=== PATIENT | female | born 1955 | race Caucasian/White ===

== ENCOUNTER → 2016-07-02 | Outpatient (REF) | LOC: M LAB 14:08 | PROVIDERS: ATTEND Nurse Practitioner Adult Health | DX: Z02.9 Encounter for administrative examinations, unspecified (principal) ==

== ENCOUNTER → 2016-08-25 | Outpatient (CLI) | payer OTHER ==
[2016-08-25 16:11] LABS: ALBUMIN 3.9 GM/DL (3.2-5.2); ALBUMIN/GLOBULIN RATIO 1.26 (1.00-1.93); ALKALINE PHOSPHATASE 79 U/L (45-117); ALT/SGPT 67 U/L (12-78); ANION GAP 9 MEQ/L (8-16); AST/SGOT 26 U/L (15-37); BILIRUBIN,TOTAL 0.5 MG/DL (0.2-1.0); BLOOD UREA NITROGEN 16 MG/DL (7-18); CALCIUM LEVEL 8.9 MG/DL (8.8-10.2); CARBON DIOXIDE LEVEL 30 MEQ/L (21-32); CHLORIDE LEVEL 100 MEQ/L (98-107); CHOLESTEROL LEVEL 188 MG/DL (<200); CREATININE FOR GFR 0.73 MG/DL (0.55-1.02); GLOMERULAR FILTRATION RATE > 60.0 (>45); GLUCOSE, FASTING 98 MG/DL (80-110); POTASSIUM SERUM 4.2 MEQ/L (3.5-5.1); SODIUM LEVEL 139 MEQ/L (136-145); TRIGLYCERIDES LEVEL 219 MG/DL (<150)
== END ==
LOC: M WUC 08:36
PROVIDERS: ATTEND Family Medicine
DX: E78.2 Mixed hyperlipidemia (principal)

== ENCOUNTER → 2017-04-22 | Outpatient (CLI) | payer OTHER | LOC: M WHC 09:02 | DX: Z12.31 Encounter for screening mammogram for malignant neoplasm of breast (principal) | CPT/HCPCS: 77067 ==

== ENCOUNTER → 2017-04-22 | Outpatient (REF) | payer OTHER | LOC: M SFHCWAGY 09:20 | DX: Z12.4 Encounter for screening for malignant neoplasm of cervix (principal) | CPT/HCPCS: 88142 ==

== ENCOUNTER → 2017-10-26 | Outpatient (REF) | payer OTHER ==
[2017-10-26 10:43] LABS: HEMATOCRIT 40.6 % (36.0-47.0); HEMOGLOBIN 13.8 g/dl (12.0-15.5); MEAN CORPUSCULAR HEMOGLOBIN 29.4 pg (27.0-33.0); MEAN CORPUSCULAR VOLUME 86.4 fl (80.0-96.0); PLATELET COUNT, AUTOMATED 265 10^3/uL (150-450); RED CELL DISTRIBUTION WIDTH 12.7 % (11.5-14.5); WHITE BLOOD COUNT 6.7 10^3/uL (4.0-10.0)
[2017-10-26 11:25] LABS: ALBUMIN 3.8 GM/DL (3.2-5.2); ALBUMIN/GLOBULIN RATIO 1.19 (1.00-1.93); ALKALINE PHOSPHATASE 89 U/L (45-117); ALT/SGPT 30 U/L (12-78); ANION GAP 8 MEQ/L (8-16); AST/SGOT 19 U/L (7-37); BILIRUBIN,TOTAL 0.3 MG/DL (0.2-1.0); BLOOD UREA NITROGEN 18 MG/DL (7-18); CALCIUM LEVEL 8.8 MG/DL (8.8-10.2); CARBON DIOXIDE LEVEL 30 MEQ/L (21-32); CHLORIDE LEVEL 105 MEQ/L (98-107); CHOLESTEROL LEVEL 193 MG/DL (<200); CHOLESTEROL RISK RATIO 4.948 (<5); GLOMERULAR FILTRATION RATE > 60.0 (>45); GLUCOSE, FASTING 93 MG/DL (70-100); HDL CHOLESTEROL 39 MG/DL (>40); LDL CHOLESTEROL 110.8 MG/DL (<100); NON-HDL-C 154 MG/DL; POTASSIUM SERUM 3.7 MEQ/L (3.5-5.1); SODIUM LEVEL 143 MEQ/L (136-145); TRIGLYCERIDES LEVEL 216 MG/DL (<150)
[2017-10-26 11:29] LABS: ESTIMATED AVERAGE GLUCOSE 123 MG/DL (60-110); HEMOGLOBIN A1c 5.9 %
== END ==
LOC: M SFHCPLAZ 08:42
DX: F43.23 Adjustment disorder with mixed anxiety and depressed mood (principal); E78.2 Mixed hyperlipidemia; Z86.39 Personal history of other endocrine, nutritional and metabolic disease; E74.9 Disorder of carbohydrate metabolism, unspecified
CPT/HCPCS: 84443

== ENCOUNTER → 2018-04-25 | Outpatient (CLI) | payer OTHER ==
--- NOTE | 2018-04-25 17:05 | REP ---
Digital diagnostic unilateral right breast mammography with CAD and focused right breast sonography: History: Screening mammography from earlier today was BIRADS category zero because of a possible nodular neodensity 8 mm in diameter at approximately 11 o'clock position in the upper outer quadrant of the right breast. Diagnostic imaging was recommended. Comparison is also made with prior mammography from April 22, 2017. Mammographic findings: Magnified focal spot compression CC, MLO, and true MLO views of the right breast confirm the presence of a 7 mm nodular neodensity in the upper outer quadrant right breast with somewhat irregular margins. This is at approximately 11 o'clock position. Sonographic findings: The right breast is scanned from 10 o'clock 12 o'clock. At 11 o'clock and heterogeneous background echotexture, a 6 x 5 x 3 mm hypoechoic nodule is noted approximately 2.4 cm from the nipple. This most likely corresponds to the mammographic opacity. It is not a cyst. Its long axis is oblique to the skin. Impression: BIRADS category four suspicious right breast imaging. Irregular 7 mm nodule seen mammographically. A 6 mm hypoechoic nodule is seen sonographically. Ultrasound-guided needle biopsy of the right breast is recommended with marker clip placement and post biopsy mammography. This mammogram was interpreted with the aid of an FDA-approved computer-aided detection system. The patient states she had a clinical breast exam in April 2018. The patient letter being requested is M4. Electronically Signed by Haroldo Bhardwaj MD 04/25/2018 07:46 P
== END ==
LOC: M RAD 15:09
PROVIDERS: ATTEND Nurse Practitioner Women's Health
DX: N63.10 Unspecified lump in the right breast, unspecified quadrant (principal)

== ENCOUNTER → 2018-04-25 | Outpatient (CLI) | payer OTHER ==
--- NOTE | 2018-04-25 11:44 | REPMRS ---
Patient History The patient states she had a clinical breast exam in 05/07 Family history of prostate cancer at age 60 in father. Took hormonal contraceptives for 10 years. Took estrogen for 1 year. Digital Woman Screen Mammo: April 25, 2018 - Exam #: [id number] Bilateral CC and MLO view(s) were taken. Technologist: Jacquie Hopkins, Technologist Prior study comparison: April 22, 2017, digital woman screen mammo performed at [facility]. January 07, 2016, digital woman screen mammo performed at [facility]. November 30, 2014, digital woman screen mammo performed at [facility]. FINDINGS: There are scattered fibroglandular densities. There is an 8 mm nodular neodensity projecting in the upper outer quadrant of the right breast on today's mammography which merits further evaluation. This has a lobulated contours. There has been no change in the appearance of the mammogram from the prior studies. There is a mild amount of scattered fibroglandular density which is fairly symmetric. There is no interval development of dominant mass, architectural distortion, or clustered microcalcification suggestive of malignancy. 3-D tomosynthesis shows no additional findings. Assessment: BI-RADS/ACR category 0 mammogram, incomplete. BIRADS/ACR category zero mammogram, incomplete. Additional imaging and/or prior images needed. Recommendation Ultrasound and special view mammogram of the right breast. This patient's Lifetime Breast Cancer RIsk is estimated at 10.0 %. This mammogram was interpreted with the aid of an FDA-approved computer-aided dectection system. Electronically Signed By: Dayton Bhardwaj MD 04/25/18 [id number]
== END ==
LOC: M WHC 10:09
PROVIDERS: ATTEND Nurse Practitioner Women's Health
DX: R92.2 Inconclusive mammogram (principal)

== ENCOUNTER → 2018-05-16 | Outpatient (CLI) | payer OTHER ==
[~2018-05-16] MED LIST: LIDOCAINE 1% MDV 20ML VIAL As Ordered ONE
--- NOTE | 2018-05-16 14:29 | REP ---
POSTBIOPSY MAMMOGRAM RIGHT BREAST: ML and CC views of the right breast are performed following ultrasound guided biopsy of a nodule in the upper outer quadrant. A metallic clip is seen within the nodule compatible with a successful ultrasound guided biopsy. Electronically Signed by Kevin Chester MD 05/16/2018 04:47 P
--- NOTE | 2018-05-16 16:43 | REP ---
ULTRASOUND GUIDED RIGHT BREAST BIOPSY The procedure was performed under the direct supervision of Dr. Chester The patient has a history of a 6 x 5 x 3 millimeter nodule in the 11 o'clock position of the right breast seen on a previous ultrasound dated 04/25/2018. The risks and benefits of the procedure were explained to the patient and informed consent was obtained. The right breast nodule was localized using ultrasound guidance. The skin was prepped and draped in a sterile fashion. 1% Xylocaine was used as a local anesthetic. Using ultrasound guidance a 13-gauge suction assisted Mammotome needle was inserted and six core biopsy samples were obtained. A marker clip was placed at the biopsy site. The patient tolerated the procedure well and there were no immediate complications. After the appropriate amount of monitored convalescence the patient was discharged from the department. Reviewed by JESSE Simmons 05/16/2018 04:03 P Electronically Signed by Kevin Chester MD 05/16/2018 04:35 P
== END ==
LOC: M RADPRO 12:17
PROVIDERS: ATTEND Surgery
DX: C50.411 Malignant neoplasm of upper-outer quadrant of right female breast (principal); Z79.899 Other long term (current) drug therapy; Z88.8 Allergy status to other drugs, medicaments and biological substances

== ENCOUNTER 2018-05-27 06:34 | Day surgery (SDC) | payer OTHER ==
[~2018-05-27] VITALS: Ht 157.5 cm; Wt 78.5 kg
[~2018-05-27 06:34] MED LIST changes: +AMLO5TAB6 PO; +ATOR40TA75 PO; +CALC600T60 PO; +ESTR62CR PV; +HYDR25TAB PO; +IBUP-1114 PO; -LIDOCAINE 1% MDV 20ML VIAL As Ordered ONE; +LIDOCAINE 1% MDV 20ML VIAL SQ PRN; +LIDOCAINE 5% (LIDODERM) PATCH TD ONE; +LISI10TA4 PO; +LR 1,000 ML IV ONE; +PANT40TA3 PO; +PARO40TA2 PO; +REST0.05 OU; +ZOLP10TA2 PO; +ceFAZolin SOD 1 GM in D5W MINI-BAG PLUS 50 ML IV ONE
[2018-05-27] MEDS ORDERED: LIDOCAINE 1% MDV 20ML VIAL As Ordered ONE (07:08)
--- NOTE | 2018-05-27 08:45 | ECGEPIP ---
Stationary ECG Study [facility] Test Date: 2018-05-27 Pat Name: EAN JACKMAN Department: Room: - Gender: F Senior Project Engineer: JEREMY : [id number] Requested By: Amadou Garcia Order Number: [id number] Reading MD: Gene Hawk Measurements Intervals [place] Rate: 70 P: 44 [place]: 129 QRS: 16 QRSD: 97 T: 53 QT: 387 QTc: 420 Interpretive Statements SINUS RHYTHM MINIMAL VOLTAGE CRITERIA FOR LVH, CONSIDER NORMAL VARIANT MINIMAL CHANGE SINCE 09/03/11 Electronically Signed On 05-27-2018 8:45:12 EST by Gene Hawk
[2018-05-27] MEDS ORDERED: LIDOCAINE 2% INJ 100 MG/5 ML SDV (FOR ANES.) As Ordered ONE (10:26)
[2018-05-27] MEDS ORDERED: ONDANSETRON 4MG/2ML VIAL (J2405) As Ordered ONE (10:26)
[2018-05-27] MEDS ORDERED: ROCURONIUM BROMIDE 50 MG/5 ML VIAL As Ordered ONE (10:26)
[2018-05-27] MEDS ORDERED: PROPOFOL 200 MG/20 ML VIAL As Ordered ONE (10:26)
[2018-05-27] MEDS ORDERED: MIDAZOLAM INJ 2 MG/2 ML VIAL (J2250) As Ordered ONE (10:27)
[2018-05-27] MEDS ORDERED: fentaNYL 250 MCG/5 ML INJECTION (J3010) As Ordered ONE (10:27)
[2018-05-27] MEDS ORDERED: dexameTHASONE 4 MG/ML 1ML VIAL (J1100) As Ordered ONE (11:22)
[2018-05-27] MEDS ORDERED: METHYLENE BLUE 0.5% (5MG/ML) 10 ML AMP (PROVAYBLUE)(Q9968 PER 1MG) As Ordered ONE (11:32)
[2018-05-27] MEDS ORDERED: LIDOCAINE 1% SDV INJ 30 ML VIAL As Ordered ONE (11:32)
[2018-05-27] MEDS ORDERED: BUPIVACAINE/EPIN 0.25% 30 ML VIAL As Ordered ONE (11:32)
[2018-05-27] MEDS ORDERED: NEOSTIGMINE 10 MG/10 ML VIAL (J2710) As Ordered ONE (12:55)
[2018-05-27] MEDS ORDERED: GLYCOPYRROLATE INJ 0.2 MG/ML 2 ML VIAL As Ordered ONE (12:55)
[2018-05-27] MEDS ORDERED: KETOROLAC 60 MG/2 ML VIAL (J1885) As Ordered ONE (12:55)
[2018-05-27] MEDS ORDERED: HYDROmorphone HCL 2 MG/ML 1ML VIAL (J1170) As Ordered ONE (12:56)
--- NOTE | 2018-05-27 13:15 | REP ---
Specimen radiograph. Right breast. History: Patient status post needle localization directed excisional biopsy for infiltrating ductal carcinoma. Findings: Specimen radiography demonstrates the marker clip placed at the time of the breast biopsy and medially adjacent to the localizer wire in the central portion of the specimen. There are 3 or 4 punctate microcalcifications approximately a centimeter away from the clip as well incidentally noted. Findings were relayed to Dr. Valdivia in the OR at the time of the specimen radiograph. Electronically Signed by Haroldo Bhardwaj MD 05/27/2018 03:36 P
[2018-05-27] MEDS ORDERED: LABETALOL HCL 100 MG/20 ML VIAL As Ordered ONE (13:26)
[2018-05-27] MEDS ORDERED: NORCO, ANEXSIA 5/325MG TABLET (HYDROcodone/ACETAMINOPHEN) PO PRN (13:45)
[2018-05-27] MEDS ORDERED: LR 1,000 ML IV SCH ×2 (13:45)
[2018-05-27] MEDS ORDERED: METOCLOPRAMIDE INJ 10MG/2ML VIAL (J2765) IV PRN (13:45)
[2018-05-27] MEDS ORDERED: ONDANSETRON 4MG/2ML VIAL (J2405) IV PRN ×2 (13:45)
[2018-05-27] MEDS ORDERED: fentaNYL 100 MCG/2 ML INJECTION (J3010) IV PRN (13:45)
[2018-05-27] MEDS: PERCOCET 5MG/325MG TAB PO PRN ×2 (14:03→14:45)
[2018-05-27 16:20] VITALS: BP 124/60
--- NOTE | 2018-05-27 17:58 | REP ---
RIGHT BREAST LYMPHOSCINTIGRAPHY The procedure was performed under the direct supervision of Dr. Bhardwaj. The images were reviewed with Dr. Bhardwaj. Using topical anesthetic and sterile technique 1.004 mCi of technetium 99 filtered sulfur colloid was injected subdermally and eight fractionated periareolar injections. Images obtained 1 hour after injection show sophie uptake superolaterally on the right. Impression: Right breast lymphoscintigraphy. There is sophie uptake superolaterally on the right. Reviewed by JESSE Simmons 05/27/2018 03:50 P Electronically Signed by Haroldo Bhardwaj MD 05/27/2018 05:49 P
--- NOTE | 2018-05-27 18:01 | REP ---
Right breast localization The procedure was performed under the direct supervision of Dr. Bhardwaj. Patient has a history of a 6 x 5 x 3 mm nodule in the 11 o'clock position of the right breast seen on a previous ultrasound dated 04/25/2018. This was biopsied using ultrasound guidance on 05/16/2018 and marker clip was placed at the biopsy site. The risks and benefits of the procedure were explained to the patient and informed consent was obtained. A cranial caudal approach was utilized. The marker clip was localized using mammographic guidance. The skin was prepped and draped in a sterile fashion. 1% lidocaine was used as a local anesthetic. A 7.5 cm [place] needle wire system was inserted. Follow-up images demonstrate good needle placement. The patient tolerated the procedure well and there were no immediate complications. Reviewed by JESSE Simmons 05/27/2018 03:58 P Electronically Signed by Haroldo Bhardwaj MD 05/27/2018 05:52 P
--- NOTE | 2018-06-02 21:15 | RO ---
DATE OF PROCEDURE: 05/27/2018 PREOPERATIVE DIAGNOSIS: Right breast cancer. POSTOPERATIVE DIAGNOSIS: Right breast cancer. PROCEDURES: 1. Right breast lumpectomy (needle localization). 2. [place] node biopsy. SURGEON: Siva Valdivia FINISHED CLOTH EXAMINER: Dr. Arredondo (provided retraction exposure assistance with exposure of axillary lymph node). ANESTHESIA: General endotracheal anesthesia. ESTIMATED BLOOD LOSS: Minimal. FLUIDS: Crystalloid. BRIEF PROCEDURE SUMMARY: The patient was brought to the operating room and was given general anesthesia. After adequate anesthesia and preoperative antibiotics were given the patient was prepped and draped in the usual sterile fashion. Methylene blue was inserted in the periareolar area and approximately 3.5 mL was injected. Once this was performed the needle localization area was quite well established and unfortunately the needle was quite superiorly placed and thus I created T type incision to bring the dissection directly over the needle and lumpectomy site. In any case this was created with a 15 blade and electrocautery was used to create skin flaps both superiorly and inferiorly. Eventually a large core of tissue was taken and removed in its entirety. The wire and the needle were not seen during the dissection and using Allis clamps on both sides as well as by fingers to provide at least a centimeter margin around the tuft of tissue that I was removing. Once this was removed down all the way to the chest wall, this was removed in its entirety. Hemostasis was achieved with electrocautery. This was copiously irrigated until clear. Next, this was sent to mammography and indeed revealed the specimen in the appropriate area of the needle. This area was closed then with a 3-0 Vicryl dermal layer and 4-0 Vicryl subcuticular. Steri-Strips and a dry sterile dressing was applied. Additional incision was made in the axilla after using the NeoProbe first to identified the location of the pot node, a small incision was made in the axilla and electrocautery was used cut through dermis, underlying subcutaneous tissue down to the clavipectoral fascia. This was opened and then the lymph node was identified with a combination of blunt and sharp dissection. There was a small vessel going right across this lymph node and up to it. I clipped this but there was a branch going off the backside a was treated with electrocautery and provided some hemostasis but eventually this lymph node which was a blue lymph node was removed and indeed revealed a count of almost approximately 14,000 background count was less than 200. The axilla was then copiously irrigated until clear. Once this was clear and operative field was dry, the 3-0 Vicryl was used to approximate the dermis, 4-0 Vicryl was used to approximate the skin. Steri-Strips and dry sterile dressing was applied. The patient was awakened from her anesthesia, brought to the recovery room awake, alert, hemodynamically stable. Sponge and needle counts correct times two.
== END 2018-05-27 16:25 | disposition home or self-care (01) ==
LOC: M SDC 06:34
PROVIDERS: ATTEND Surgery
DX: C50.211 Malignant neoplasm of upper-inner quadrant of right female breast (principal); Z17.0 Estrogen receptor positive status [ER+]; I10 Essential (primary) hypertension; E78.5 Hyperlipidemia, unspecified; K21.9 Gastro-esophageal reflux disease without esophagitis; Z79.899 Other long term (current) drug therapy; Z88.8 Allergy status to other drugs, medicaments and biological substances
CPT/HCPCS: 19125; 38525; 72265; 76098; 78195; 88305; 93005; A9541; J0690; J1100; J1170; J1885; J2250; J2405; J2710; J3010; Q9968

== ENCOUNTER → 2018-06-09 | Outpatient (CLI) | payer OTHER ==
[~2018-06-09] MED LIST changes: -LIDOCAINE 1% MDV 20ML VIAL SQ PRN; -LIDOCAINE 5% (LIDODERM) PATCH TD ONE; +LORA10CA PO; -LR 1,000 ML IV ONE; +MULTCAP PO; -ceFAZolin SOD 1 GM in D5W MINI-BAG PLUS 50 ML IV ONE
--- NOTE | 2018-06-10 11:55 | RADONC ---
RADIATION ONCOLOGY CONSULTATION DATE: 06/09/2018 REFERRING PROVIDERS: Dr. Valdivia, Dr. Mariely Bernal DIAGNOSIS: Right breast carcinoma (invasive ductal type), status post core biopsy, status post lumpectomy, status post sentinel lymph node biopsy. STAGE: Stage [id number], Grade 3, Group stage I A. CHART NUMBER:[id number] ICD-10 CODE: 50.4. ECOG PERFORMANCE STATUS: 0 HISTORY OF PRESENT ILLNESS: The patient is a 62-year-old female who underwent a mammogram showing an abnormality involving the right breast. The nodule was located in the upper outer quadrant, approximately at the 11 o'clock position. On 05/16/2018 she underwent a successful breast biopsy. The original breast tumor measured 5 x 6 x 3 mm. She subsequently underwent a lumpectomy on 05/27/2018, which revealed invasive ductal carcinoma with the residual tumor 1-2 mm adjacent to a previous biopsy cavity. The inked margins of resection were negative. There was a focus of ductal carcinoma in situ, nuclear grade 3 extending less than 3 mm of the inked surgical margin. The sentinel lymph node in the right axilla was biopsied, which revealed no evidence of tumor metastasis. In summary, there were two foci 1-2 mm each or approximately 8 mm if combined with the core biopsy specimen. The tumor was grade 2 to 3 and lymphovascular invasion was not identified. An in situ component was seen with two foci, both 3 and 5 mm with the closest margin being 3 mm, but ultimately the margins were negative. As stated, the receptors were noted to be ER positive, WI positive, HER2/scott oncogene negative. She was thusly staged a pathologic stage [id number]. She did well following her surgery and has an appointment to see Dr. Mariely Bernal for potential chemotherapy on June 15. She comes today to discuss the logistics of external beam radiotherapy. PAST MEDICAL HEALTH: Hypertension, hypercholesterolemia PAST SURGICAL HISTORY: Knee surgery on the left in 2010, wrist surgery in 2011. FAMILY HISTORY OF CANCER: Father had prostate cancer. Mother secondary to hypertension and atrial fibrillation. SOCIAL HISTORY: Smoking: Former smoker of two packs per day. She quit in 1999. Alcohol history, social. ALLERGIES: Denies any allergic reaction to contrast. NAPROXEN, ZYRTEC. CURRENT MEDICATIONS: - amlodipine 5 mg - hydrochlorothiazide 25 mg - pantoprazole 40 mg - lisinopril 10 mg - paroxetine 40 mg - atorvastatin 40 mg - ibuprofen 400 mg - calcium 600-1500 mg - Restasis 0.05% REVIEW OF SYSTEMS: HEENT: She denies nausea, vomiting, headaches or focal neurologic deficits. Eyes: Denies blurred vision or double vision. She denies ear symptoms or hoarseness. Cardiovascular: Denies chest pain, palpitations. Respiratory: Denies coughing, hemoptysis or wheezing. Gastrointestinal: Denies rectal bleeding or family history of colon cancer. She also denies heartburn, jaundice, diarrhea or constipation. : Denies dysuria, frequency, hematuria, nocturia. Musculoskeletal: Denies pain. She may have some minor pain in the knees. Skin: Denies rashes or itching. Neurologic: Denies focal motor neurologic deficits, stroke or headaches. Psychiatric: Denies anxiety or depression. EXAMINATION FINDINGS: Vitals: BP 154/85, temperature 98.9, pulse 72, respirations 15, O2 saturation 98%, height 5 feet 1 inch, weight 176.4. HEENT: Normocephalic. EOMs intact. PERRLA. Fundi benign. Lymphatics: No palpable peripheral lymphadenopathy is noted in the cervical, supraclavicular, axillary or inguinal lymph node chains. Lungs: Clear to auscultation and percussion. Heart: Regular without murmurs. Breasts: Bilaterally symmetric with no palpable masses in either breast. The 11 o'clock position scar is noted involving the right breast with some minimal post cutaneous induration. It is healing very nicely. Abdomen: Without evidence of hepatomegaly, masses, deep abdominal tenderness. Extremities: Without cyanosis, clubbing or edema. Neurologic: Examination physiologic and nonfocal. IMPRESSION Infiltrating ductal carcinoma, right breast staged [id number] (Group I A). The tumor was noted to be ER and WI positive, HER2/scott oncogene not overly express, Grade II. PLAN OF RADIOTHERAPY: The patient will eventually require radiation therapy and we would recommend a dose of external beam breast conservation radiotherapy as per our protocol. We will be treating the breast with three-dimensional conformal radiotherapy. Prior to treatment delivery, localization will be accomplished upon our CT simulator and treatment portals defined by the use of multiple leaf collimators. The indications, possible side effects, as well as possible alternatives have been explained to the patient in detail. She understands and is willing to proceed as outlined. She realizes that she is seeing Dr. Bernal on June 15 for evaluation of chemotherapy. Should she require chemotherapy, I explained to the patient that this will precede treatment with radiotherapy. Thank you for referring this very rose lady to us and allowing us the opportunity of participation in her overall management. CC: Dr. Valdivia, Dr. Mariely Bernal [facility] SYSTEM[facility]
== END ==
LOC: M ONCR 12:47
PROVIDERS: ATTEND Radiology Radiation Oncology
DX: C50.411 Malignant neoplasm of upper-outer quadrant of right female breast (principal)

== ENCOUNTER → 2018-08-09 | Outpatient (CLI) | payer OTHER ==
[~2018-08-09] MED LIST changes: +ANAS1TAB2 PO; +LORA-674 PO
--- NOTE | 2018-08-11 09:47 | DEXA ---
AP SPINE L1 - L4 1.226 0.3 1.7 LT FEMUR TOTAL 0.848 -1.3 -0.2 LT NECK 0.752 -2.1 -0.7 RT FEMUR TOTAL 0.879 -1.0 0.0 RT NECK 0.798 -1.7 -0.4 TOTAL BODY TOTAL OTHER COMMENTS: Normal bone densitometry of the spine. There is low bone density of the hips. The density of the spine has increased 3.3% since the initial exam on 08/04/2004. The spine density has increased 1.1% since the most recent exam on 11/29/2013. The density of the left hip has decreased 4.2% since the initial exam on 08/04/2004. The density of the left hip has decreased 3.6% since the most recent exam on 11/29/2013. The density of the right hip has decreased 1.7% since the initial exam on 08/04/2004. The density of the right hip has decreased 2.3% since the most recent exam on 11/29/2013. FOLLOW-UP: Recommendation for the next bone density exam: 2 years. LAURENT
== END ==
LOC: M WHC 11:26
PROVIDERS: ATTEND Internal Medicine Hematology & Oncology
DX: C50.911 Malignant neoplasm of unspecified site of right female breast (principal)

== ENCOUNTER → 2018-08-16 | Outpatient (RCR) | payer OTHER ==
[2018-07-26 15:25] LABS: HEMOGLOBIN 13.7 g/dl (12.0-15.5); LYMPH % 36.8 % (24.0-44.0); MEAN CORPUSCULAR HEMOGLOBIN 29.4 pg (27.0-33.0); MEAN CORPUSCULAR HGB CONC 32.6 g/dl (32.0-36.5); MEAN CORPUSCULAR VOLUME 90.2 fl (80.0-96.0); NEUTROPHILS # 4.6 10^3/uL (1.8-7.7); NEUTROPHILS % 53.3 % (36.0-66.0); RED BLOOD COUNT 4.66 10^6/uL (4.00-5.40); WHITE BLOOD COUNT 8.7 10^3/uL (4.0-10.0)
--- NOTE | 2018-07-26 16:26 | RADONC ---
RADIATION ONCOLOGY SIMULATION NOTE DATE: 07/26/2018 CHART NUMBER: [id number] SIMULATION NOTE: Ms. Whitman was taken to the CT simulator for simulation of her right breast field. Simulation was accomplished without difficulty or discomfort. Radiation treatment planning is underway and radiation treatments will begin subsequently. I was physically present throughout the course of CT simulation. An immobilization device was created and will be used throughout the course of treatment.
--- NOTE | 2018-08-11 07:39 | RADONC ---
RADIATION ONCOLOGY PROGRESS NOTE DATE: 08/09/2018 CHART NUMBER: [id number] Ms. Whitman is presently at a dose of 1067 cGy to her right breast and is tolerating treatments quite well at this point with no complaints related to her radiation therapy. She is having no breast or bone pain. REVIEW OF SYSTEMS : The patient's review of systems is noncontributory. She denies nausea, vomiting, fevers, chills, night sweats, diplopia, headaches, anxiety or depression, anorexia, weight loss, visual disturbances, chest pain, urinary or bowel difficulties, bone pain, or neurological problems. PHYSICAL EXAMINATION: The patient's skin is in good condition with no evidence of radiation change present. There is no moist or dry desquamation. The remainder of her physical exam remains unchanged. Ms. Whitman is tolerating treatments quite well and radiation will continue as scheduled.
--- NOTE | 2018-08-17 08:33 | RADONC ---
RADIATION ONCOLOGY PROGRESS NOTE DATE: 08/15/2018 CHART NUMBER: [id number] PROGRESS NOTE: Ms. Whitman is presently at a dose of 2134 cGy to her right breast and is tolerating treatments quite well at this point with no complaints related to her radiation therapy. She is having no breast or bone pain. REVIEW OF SYSTEMS: The patient's review of systems is noncontributory. Denies nausea, vomiting, fevers, chills, night sweats, diplopia, headaches, anxiety or depression, anorexia, weight loss, visual disturbances, chest pain, urinary or bowel difficulties, bone pain, or neurological problems. PHYSICAL EXAMINATION: The patient's skin is in good condition with no evidence of moist or dry desquamation. The remainder of physical exam remains unchanged. Ms. Whitman is tolerating treatments quite well and radiation will continue as scheduled.
== END ==
LOC: M ONCR 07-26 14:36
PROVIDERS: ATTEND Radiology Radiation Oncology
DX: C50.411 Malignant neoplasm of upper-outer quadrant of right female breast (principal)

== ENCOUNTER 2018-09-01 11:58 | Outpatient (RCR) | payer OTHER ==
--- NOTE | 2018-08-22 14:50 | RADONC ---
RADIATION ONCOLOGY PROGRESS NOTE DATE: 08/22/2018 CHART NUMBER: [id number] PROGRESS NOTE: Ms. Whitman is thus far at a dose of 3200 cGy to her right breast and was last treated on 08/19/2018. REVIEW OF SYSTEMS: As of Wednesday the patient's review of systems was noncontributory. Denies nausea, vomiting, fevers, chills, night sweats, diplopia, headaches, anxiety or depression, anorexia, weight loss, visual disturbances, chest pain, urinary or bowel difficulties, bone pain, or neurological problems. PHYSICAL EXAMINATION: The patient's skin overall was in generally good condition with no evidence of moist or dry desquamation. The remainder of her physical exam remained unchanged. The patient was not treated today as noted above because of machine breakdown. The patient is scheduled to resume radiation tomorrow if the machine is repaired.
--- NOTE | 2018-08-26 09:30 | RADONC ---
RADIATION ONCOLOGY SIMULATION NOTE DATE: 08/25/2018 CHART NUMBER: [id number] Ms. Whitman was taken to the linear accelerator today for clinical setup of her right breast electron boost field. Setup was accomplished without difficulty or discomfort. Radiation treatment planning is underway and radiation treatments will begin subsequently. An immobilization device was created and will be used throughout the course of treatment. It was created without difficulty or discomfort. I was physically present throughout the course of clinical setup simulation.
--- NOTE | 2018-08-30 07:01 | RADONC ---
RADIATION ONCOLOGY PROGRESS NOTE DATE: 08/29/2018 CHART #: [id number] PROGRESS NOTE Mrs. Whitman with a diagnosis of right breast carcinoma is currently receiving local regional radiotherapy and she has achieved a dose thus far of 4300 cGy of an anticipated 4900 cGy to the lumpectomy site. She will receive a total of 4000 cGy to the entire breast and this has actually been completed 2 days ago. We are now treating the lumpectomy scar site with an energetic electron beam. REVIEW OF SYSTEMS: She denies any nausea, vomiting, coughing, sputum production, hemoptysis or significant skin irritation. The remainder of the review of systems is noncontributory. EXAMINATION FINDINGS: The skin within the irradiated volume shows only minimal changes without moist desquamation and without significant erythema. There is no palpable peripheral lymphadenopathy. The remainder of the physical examination is unchanged. IMPRESSION: Tolerating therapy well. PLAN: Treatments to continue.
--- NOTE | 2018-09-01 21:02 | RADONC ---
RADIATION THERAPY TREATMENT SUMMARY DATE: 09/01/2018 REFERRING PHYSICIANS: Dr. Valdivia and Dr. Mariely Bernal DIAGNOSIS: Right breast carcinoma (invasive ductal type), status post core biopsy, status post lumpectomy, status post sentinel lymph node biopsy. STAGE: Stage [id number], grade 3, group stage IA. CHART NUMBER: [id number]. ECOG PERFORMANCE STATUS: 0. PLAN OF RADIOTHERAPY: Adjuvant. DATES: Date radiotherapy started 08/04/2018. The radiotherapy concluded 09/01/2018. DOSE: The patient received a total of whole breast radiotherapy of 4000 cGy administered in 15 fractions over 21 elapsed days. Prior to treatment delivery, localization was accomplished on our CT simulator and treatment portals defined by the use of multileaf collimators. 3D conformal radiotherapy tangents were utilized to treat to the initial 4000 cGy. Thereafter, after the completion of 4000 cGy, an additional 900 cGy boost was added via an energetic electron beam (16 MeV) to the lumpectomy scar site. These last treatments which totaled an additional 900 cGy were delivered in 5 fractions over 7 elapsed days. The treatments were delivered via a direct en face field configuration. STATUS OF TUMOR: There was no evidence of local regional recurrence nor was there clinical evidence of distant metastatic spread during the course of radiotherapy. TOLERANCE: In general, the treatments were quite well tolerated as she denied any significant nausea, vomiting, coughing, sputum production, hemoptysis, skin irritation, moist desquamation or dry desquamation. Her energy remained relatively constant during her radiotherapy. DISPOSITION: Return to clinic in approximately 1 month, and she was advised to return to her referring physicians as per their directions and instructions.
== END 2018-09-16 ==
LOC: M ONCR 11:58
PROVIDERS: ATTEND Radiology Radiation Oncology
DX: C50.411 Malignant neoplasm of upper-outer quadrant of right female breast (principal)

== ENCOUNTER → 2018-09-26 | Outpatient (CLI) | payer OTHER ==
--- NOTE | 2018-09-26 16:08 | REP ---
Right knee series: Five views. History: Pain in the right knee. Findings: There is mild diffuse osteopenia. Mild proximal tibial spurring is seen consistent with early osteoarthritis. There is nonarticular spurring on the superior pole the patella at the quadriceps tendon insertion site. There is no evidence of joint effusion. No erosive changes seen. Some clothing artifact is visible. Impression: Mild osteoarthritis. Nonarticular patellar spurring at the quadriceps tendon insertion. Electronically Signed by Haroldo Bhardwaj MD 09/26/2018 04:00 P
== END ==
LOC: M ADAMS 15:07 → M WHC 15:07
PROVIDERS: ATTEND Physician Assistant
DX: M25.561 Pain in right knee (principal); M85.861 Other specified disorders of bone density and structure, right lower leg; M17.11 Unilateral primary osteoarthritis, right knee

== ENCOUNTER 2018-10-11 14:20 | Outpatient (RCR) | payer OTHER | END 2018-10-16 | LOC: M PT 14:20 | PROVIDERS: ATTEND Orthopaedic Surgery | DX: M25.561 Pain in right knee (principal) ==

== ENCOUNTER → 2018-10-12 | Outpatient (CLI) | payer OTHER ==
--- NOTE | 2018-10-13 08:22 | RADONC ---
RADIATION ONCOLOGY FOLLOWUP NOTE DATE OF SERVICE: 10/12/2018 REFERRING PHYSICIANS: Dr. Valdivia and Dr. Mariely Bernal. DIAGNOSIS: Right breast carcinoma (invasive ductal type), status post core biopsy, status post lumpectomy, status post sentinel lymph node biopsy. STAGE: [id number], grade 3, group stage I A. CHART NUMBER: [id number] ICD-10 CODE: 50.4. ECOG PERFORMANCE STATUS: 0 FOLLOWUP NOTE: The patient has completed radiotherapy and returns 1 month status post completion of her treatments. She has no complaints referable to her disease or to her treatments. REVIEW OF SYSTEMS: She specifically denies any nausea, vomiting, coughing, sputum production, or hemoptysis. Her energy level is such that she is able to maintain most day-to-day activities without any alteration of her lifestyle. Skin irritation is not an issue for her. EXAMINATION FINDINGS: She is a well-developed, well-nourished female, in no acute distress. HEENT: Normocephalic. EOMs intact. PERRLA. Fundi benign. Lymphatics: No palpable peripheral lymphadenopathy is appreciated in the cervical, supraclavicular, axillary, or inguinal lymph node chains. Lungs are clear to auscultation and percussion. Heart: Regular without murmurs. Abdomen: Without evidence of hepatomegaly, masses, deep abdominal tenderness. Extremities: Without cyanosis, clubbing, or edema. Breasts: Bilaterally symmetric with no dominant masses. IMPRESSION: The patient is clinically CARLEE at this time. We would like to see her back in approximately 6 months with a repeat mammogram. She was encouraged to return to her referring physicians as per their instructions and directions. We would like to see her back at this clinic in 6 months. [facility]
== END ==
LOC: M ONCR 11:28
PROVIDERS: ATTEND Radiology Radiation Oncology
DX: Z08 Encounter for follow-up examination after completed treatment for malignant neoplasm (principal); Z85.3 Personal history of malignant neoplasm of breast; Z92.3 Personal history of irradiation

== ENCOUNTER → 2018-10-24 | Outpatient (REF) | payer OTHER ==
[2018-10-24 19:34] LABS: ALT/SGPT 28 U/L (12-78); BILIRUBIN,TOTAL 0.7 MG/DL (0.2-1.0); BLOOD UREA NITROGEN 10 MG/DL (7-18); CALCIUM LEVEL 9.8 MG/DL (8.8-10.2); CARBON DIOXIDE LEVEL 30 MEQ/L (21-32); CHLORIDE LEVEL 105 MEQ/L (98-107); CHOLESTEROL LEVEL 169 MG/DL (<200); CHOLESTEROL RISK RATIO 3.755 (<5); CREATININE FOR GFR 0.77 MG/DL (0.55-1.30); FREE T4 1.21 NG/DL (0.76-1.46); GLOMERULAR FILTRATION RATE > 60.0 (>45); GLUCOSE, FASTING 91 MG/DL (70-100); HDL CHOLESTEROL 45 MG/DL (>40); LDL CHOLESTEROL 93 MG/DL (<100); NON-HDL-C 124 MG/DL; POTASSIUM SERUM 3.7 MEQ/L (3.5-5.1); SODIUM LEVEL 142 MEQ/L (136-145); THYROID STIMULATING HORMONE 0.409 uIU/ML (0.358-3.740); TOTAL PROTEIN 7.3 GM/DL (6.4-8.2); TRIGLYCERIDES LEVEL 157 MG/DL (<150)
[2018-10-24 19:43] LABS: HEMATOCRIT 41.5 % (36.0-47.0); HEMOGLOBIN 13.8 g/dl (12.0-15.5); MEAN CORPUSCULAR HEMOGLOBIN 28.4 pg (27.0-33.0); MEAN CORPUSCULAR HGB CONC 33.3 g/dl (32.0-36.5); MEAN CORPUSCULAR VOLUME 85.4 fl (80.0-96.0); PLATELET COUNT, AUTOMATED 265 10^3/uL (150-450); RED BLOOD COUNT 4.86 10^6/uL (4.00-5.40); WHITE BLOOD COUNT 6.3 10^3/uL (4.0-10.0)
[2018-10-24 20:03] LABS: MAU/CREAT RATIO 119.2 MCG/MG (0.0-30.0)
== END ==
LOC: M SFHCADAM 12:48
PROVIDERS: ATTEND Physician Assistant
DX: E78.2 Mixed hyperlipidemia (principal); K21.9 Gastro-esophageal reflux disease without esophagitis; I10 Essential (primary) hypertension; Z86.39 Personal history of other endocrine, nutritional and metabolic disease; F43.23 Adjustment disorder with mixed anxiety and depressed mood

== ENCOUNTER → 2018-10-26 | Outpatient (REF) | payer OTHER | LOC: M LAB REF 15:43 | PROVIDERS: ATTEND Physician Assistant | DX: N39.0 Urinary tract infection, site not specified (principal) ==

== ENCOUNTER → 2018-11-16 | Outpatient (RCR) | payer OTHER | LOC: M PT 10-17 13:55 | PROVIDERS: ATTEND Orthopaedic Surgery | DX: Z47.89 Encounter for other orthopedic aftercare (principal); M25.561 Pain in right knee ==

== ENCOUNTER 2018-12-12 13:17 | Outpatient (RCR) | payer OTHER | END 2018-12-17 | LOC: M PT 13:17 | PROVIDERS: ATTEND Orthopaedic Surgery | DX: Z47.89 Encounter for other orthopedic aftercare (principal); M25.561 Pain in right knee ==

== ENCOUNTER → 2019-03-22 | Outpatient (CLI) | payer OTHER ==
[~2019-03-22] MED LIST changes: +CBD OIL PO
--- NOTE | 2019-03-22 12:47 | RADONC ---
RADIATION ONCOLOGY FOLLOWUP NOTE: DATE: 03/22/2019 CHART NUMBER: [id number], Date of : 1955 Ms Whitman is a 63-year-old woman who had the diagnosis of invasive ductal carcinoma of the right breast, T1b N0 M0. She is status post radiation therapy completed 10/12/2018. INTERVAL HISTORY: She is doing very well. She is on anastrazole. She is experiencing aches all over the body. Bone density test was done. She is taking calcium 1200 mg daily with vitamin D. SYSTEMIC REVIEW: Denies fever chill but experiencing general ache all over the body with hormone. She has no respiratory cardiovascular symptoms no GI complaints. ECOG Perfomance score :0 PHYSICAL EXAMINATION, There are no palpable lymhnodes in the neck and axilla bialterally, There is no rash or skin changes on the right breast. Right breast is slightly smaller than the left breast. There is no lump or tenderness in the right breast. There is no swelling of the arms. Lungs are clear. There is no bony tenderness over the spine or rib cages. ASSESSMENT/RECOMMENDATIONS: This is a 63-year-old woman who carries the diagnosis of right breast CA stage I A status post radiation therapy which was completed on 10/12/2018, doing very well. She is on anastrazole with generalized ache. She is scheduled a followup mammography in April of 2019. She was advised continuous followup care with the physicians involved and she was also asked to return here in 3 months. LAURENT
== END ==
LOC: M ONCR 11:24
PROVIDERS: ATTEND Radiology Radiation Oncology
DX: C50.411 Malignant neoplasm of upper-outer quadrant of right female breast (principal); Z92.3 Personal history of irradiation

== ENCOUNTER → 2019-04-26 | Outpatient (CLI) | payer OTHER ==
--- NOTE | 2019-04-26 12:38 | REPMRS ---
Patient History The patient states she had a clinical breast exam in 2018. Patient is postmenopausal, has history of cancer in the right breast at age 62, and is nulliparous. Family history of prostate cancer at age 60 in father. Radio exam Breast Specimen of the right breast, May 27, 2018. Malignant localization of breast nodule of the right breast, May 27, 2018. Malignant US guided breast biopsy of the right breast, May 16, 2018. Took hormonal contraceptives for 10 years. Took estrogen for 1 year. Taking tamoxifen for 3 months. Digital Woman Screen Mammo: April 26, 2019 - Exam #: [id number] Bilateral CC and MLO view(s) were taken. Technologist: Ann Tolbert, Technologist Prior study comparison: May 16, 2018, right breast digital mammo diagnostic unilateral, performed at [facility]. April 25, 2018, bilateral digital woman screen mammo performed at [facility]. April 22, 2017, digital woman screen mammo performed at [facility]. January 07, 2016, digital woman screen mammo performed at [facility]. FINDINGS: There are scattered fibroglandular densities. There is diffuse dermal and stromal thickening post a radiation therapy in the right breast. Mild postoperative scarring is seen at 12 o'clock in the right breast. Expected postop treatment changes. There has been no other change in the appearance of the mammogram from the prior studies. There is a mild amount of scattered fibroglandular density which is fairly symmetric. There is no other interval development of dominant mass, architectural distortion, or grouped microcalcification suggestive of malignancy. 3-D tomosynthesis shows no additional findings. Assessment: BI-RADS/ACR category 2 mammogram. Benign Findings. Recommendation Routine screening mammogram of both breasts in 1 year (for women over age 40). This mammogram was interpreted with the aid of an FDA-approved computer-aided dectection system. Electronically Signed By: Dayton Bhardwaj MD 04/26/19 [id number]
== END ==
LOC: M WHC 10:20
PROVIDERS: ATTEND Nurse Practitioner Women's Health
DX: Z12.31 Encounter for screening mammogram for malignant neoplasm of breast (principal); Z80.42 Family history of malignant neoplasm of prostate; Z85.3 Personal history of malignant neoplasm of breast

== ENCOUNTER → 2019-06-14 | Outpatient (CLI) | payer OTHER ==
--- NOTE | 2019-06-15 11:00 | RADONC ---
RADIATION ONCOLOGY FOLLOWUP NOTE DATE OF SERVICE: 06/14/2019 CHART NUMBER: [id number]. DIAGNOSIS: Right breast cancer. STAGE: IA, [id number], grade 3. ECOG PERFORMANCE STATUS : 0. FOLLOWUP NOTE: Ms. Whitman is a very pleasant 63-year-old white female who is presenting to us today for routine followup visit 10 months postcompletion of external beam radiation therapy. The patient presents today reporting that she is doing quite well with no complaints at this time related to her radiation therapy or disease. She has no breast or bone pain. REVIEW OF SYSTEMS: The patient's review of systems is noncontributory. She denies nausea, vomiting, fevers, chills, night sweats, diplopia, headaches, anxiety or depression, anorexia, weight loss, visual disturbances, chest pain, urinary or bowel difficulties, bone pain, or neurological problems. PHYSICAL EXAMINATION: The patient is a well-developed, well-nourished female in no acute distress. HEENT examination is normocephalic, atraumatic. Extraocular movements are intact. There is no palpable cervical, supraclavicular, infraclavicular, axillary, or inguinal lymphadenopathy present. Lungs are clear to auscultation and percussion. Heart has a regular rate and rhythm. Abdomen is benign with no hepatosplenomegaly, masses, or tenderness. Breast examination reveals no masses or discharge bilaterally. Skeletal examination reveals no tenderness to pressure or percussion of the bony skeleton. Extremities reveal no clubbing, cyanosis, or edema. Neurologic examination is grossly intact, as is the remainder of the physical examination. ASSESSMENT: The patient is doing quite well at this time. She is undergoing close followup and management by her other physicians. In light of my impending prison, I am discharging her from my followup at this point except on a p.r.n. basis. cc: Josefina Lockwood MD
== END ==
LOC: M ONCR 12:35
PROVIDERS: ATTEND Radiology Radiation Oncology
DX: C50.411 Malignant neoplasm of upper-outer quadrant of right female breast (principal)

== ENCOUNTER → 2019-09-08 | Outpatient (REF) | payer OTHER ==
[2019-09-08 17:47] LABS: HEMATOCRIT 43.2 % (36.0-47.0); HEMOGLOBIN 14.5 g/dl (12.0-15.5); MEAN CORPUSCULAR HEMOGLOBIN 29.7 pg (27.0-33.0); MEAN CORPUSCULAR HGB CONC 33.6 g/dl (32.0-36.5); MEAN CORPUSCULAR VOLUME 88.5 fl (80.0-96.0); PLATELET COUNT, AUTOMATED 286 10^3/uL (150-450); RED BLOOD COUNT 4.88 10^6/uL (4.00-5.40); WHITE BLOOD COUNT 5.4 10^3/uL (4.0-10.0)
[2019-09-08 18:15] LABS: ALT/SGPT 44 U/L (12-78); BILIRUBIN,TOTAL 0.5 MG/DL (0.2-1.0); BLOOD UREA NITROGEN 12 MG/DL (7-18); CALCIUM LEVEL 8.8 MG/DL (8.8-10.2); CARBON DIOXIDE LEVEL 29 MEQ/L (21-32); CHLORIDE LEVEL 105 MEQ/L (98-107); CHOLESTEROL LEVEL 200 MG/DL (<200); CHOLESTEROL RISK RATIO 4.878 (<5); CREATININE FOR GFR 0.64 MG/DL (0.55-1.30); FREE T4 1.13 NG/DL (0.76-1.46); GLOMERULAR FILTRATION RATE > 60.0 (>45); GLUCOSE, FASTING 88 MG/DL (70-100); HDL CHOLESTEROL 41 MG/DL (>40); LDL CHOLESTEROL 122 MG/DL (<100); NON-HDL-C 159 MG/DL; POTASSIUM SERUM 4.1 MEQ/L (3.5-5.1); SODIUM LEVEL 141 MEQ/L (136-145); TOTAL PROTEIN 7.4 GM/DL (6.4-8.2); TRIGLYCERIDES LEVEL 183 MG/DL (<150)
== END ==
LOC: M SFHCADAM 11:23
PROVIDERS: ATTEND Physician Assistant
DX: J45.998 Other asthma (principal); F43.23 Adjustment disorder with mixed anxiety and depressed mood; I10 Essential (primary) hypertension; Z86.39 Personal history of other endocrine, nutritional and metabolic disease; E74.9 Disorder of carbohydrate metabolism, unspecified; E78.2 Mixed hyperlipidemia

== ENCOUNTER → 2020-04-10 | Outpatient (REF) | payer OTHER ==
[~2020-04-10] MED LIST changes: +AMLO1TAB24 PO; -AMLO5TAB6 PO; +PANT40TA29 PO; -PANT40TA3 PO
== END ==
LOC: M SFHCPLAZ 16:49
PROVIDERS: ATTEND Physician Assistant
DX: R30.0 Dysuria (principal)

== ENCOUNTER → 2020-05-30 | Outpatient (CLI) | payer OTHER ==
[~2020-05-30] MED LIST changes: +HYDR-3490 PO; -HYDR25TAB PO; +LISI10TA22 PO; -LISI10TA4 PO
== END ==
LOC: M LABSMTC 12:22
PROVIDERS: ATTEND Family Medicine
DX: Z20.822 Contact with and (suspected) exposure to COVID-19 (principal)
CPT/HCPCS: C9803; U0003

== ENCOUNTER → 2020-06-06 | Outpatient (CLI) | payer OTHER ==
--- NOTE | 2020-06-06 12:58 | REPMRS ---
Patient History The patient states she has not had a clinical breast exam in over a year. Family history of prostate cancer at age 60 in father. Radio exam Breast Specimen of the right breast, May 27, 2018. Malignant localization of breast nodule of the right breast, May 27, 2018. Malignant US guided breast biopsy of the right breast, May 16, 2018. Took hormonal contraceptives for 10 years. Took estrogen for 1 year. Taking tamoxifen for 3 months. Digital Woman Screen Mammo: June 06, 2020 - Exam #: [id number] Bilateral CC and MLO view(s) were taken. Technologist: Ann Tolbert, Technologist Prior study comparison: April 26, 2019, bilateral digital woman screen mammo performed at [facility]. May 16, 2018, right breast digital mammo diagnostic unilateral, performed at [facility]. April 22, 2017, digital woman screen mammo performed at [facility]. FINDINGS: There are scattered fibroglandular densities. The Volpara volumetric breast density category is:B. There are stable post treatment changes in the right breast. There has been no change in the appearance of the mammogram from the prior studies. There is a mild amount of scattered fibroglandular density which is fairly symmetric. There is no interval development of dominant mass, architectural distortion, or grouped microcalcification suggestive of malignancy. 3-D tomosynthesis shows no additional findings. Assessment: BI-RADS/ACR category 2 mammogram. Benign Findings. Recommendation Routine screening mammogram of both breasts in 1 year (for women over age 40). This mammogram was interpreted with the aid of an FDA-approved computer-aided dectection system. Electronically Signed By: Dayton Bhardwaj MD 06/06/20 [id number]
== END ==
LOC: M WHC 12:11
PROVIDERS: ATTEND Nurse Practitioner Women's Health
DX: Z12.31 Encounter for screening mammogram for malignant neoplasm of breast (principal); Z85.3 Personal history of malignant neoplasm of breast; Z92.0 Personal history of contraception

== ENCOUNTER → 2020-06-27 | Outpatient (REF) | payer OTHER | LOC: M SFHCWAGY 16:59 | PROVIDERS: ATTEND Nurse Practitioner Women's Health | DX: R39.9 Unspecified symptoms and signs involving the genitourinary system (principal) ==

== ENCOUNTER → 2020-11-05 | Outpatient (CLI) | payer MEDICARE, OTHER ==
[2020-11-05 17:47] LABS: HEMATOCRIT 43.9 % (36.0-47.0); HEMOGLOBIN 14.6 g/dl (12.0-15.5); MEAN CORPUSCULAR HEMOGLOBIN 30.2 pg (27.0-33.0); MEAN CORPUSCULAR HGB CONC 33.3 g/dl (32.0-36.5); MEAN CORPUSCULAR VOLUME 90.9 fl (80.0-96.0); PLATELET COUNT, AUTOMATED 280 10^3/uL (150-450); RED BLOOD COUNT 4.83 10^6/uL (4.00-5.40); WHITE BLOOD COUNT 6.5 10^3/uL (4.0-10.0)
[2020-11-05 18:03] LABS: HEMOGLOBIN A1c 5.6 %
[2020-11-05 18:29] LABS: ALBUMIN 4.1 GM/DL (3.2-5.2); ALT/SGPT 36 U/L (12-78); BILIRUBIN,TOTAL 0.5 MG/DL (0.2-1.0); BLOOD UREA NITROGEN 13 MG/DL (7-18); CALCIUM LEVEL 8.9 MG/DL (8.8-10.2); CARBON DIOXIDE LEVEL 27 MEQ/L (21-32); CHLORIDE LEVEL 106 MEQ/L (98-107); CHOLESTEROL LEVEL 183 MG/DL (<200); CHOLESTEROL RISK RATIO 4.815 (<5); CREATININE FOR GFR 0.61 MG/DL (0.55-1.30); FREE T4 1.11 NG/DL (0.76-1.46); GLOMERULAR FILTRATION RATE > 60.0 (>45); GLUCOSE, FASTING 88 MG/DL (70-100); HDL CHOLESTEROL 38 MG/DL (>40); LDL CHOLESTEROL 116 MG/DL (<100); NON-HDL-C 145 MG/DL; SODIUM LEVEL 141 MEQ/L (136-145); THYROID STIMULATING HORMONE 0.792 uIU/ML (0.358-3.740); TOTAL PROTEIN 7.4 GM/DL (6.4-8.2); TRIGLYCERIDES LEVEL 147 MG/DL (<150)
== END ==
LOC: M WUC 12:48
PROVIDERS: ATTEND Physician Assistant
DX: E78.2 Mixed hyperlipidemia (principal); I10 Essential (primary) hypertension; E74.9 Disorder of carbohydrate metabolism, unspecified

== ENCOUNTER → 2020-11-26 | Outpatient (CLI) | payer MEDICARE ==
--- NOTE | 2020-11-26 14:59 | DEXAMM ---
INDICATION: A13.820/SCR FOR OSTEOPOROSIS/POSTMENOPAUSAL/Z78.0. COMPARISON: None. TECHNIQUE: Bone density was measured using dual-energy x-ray absorptionmetry (DEXA). FINDINGS: AP SPINE L1-L4 BMD 1.226 g/cm2 Young Adult T-Score 0.3 Age Matched Z-Score 1.7. LT FEMUR, TOTAL BMD 0.848 g/cm2 Young Adult T-Score -1.3 Age Matched Z-Score -0.2. LT NECK BMD 0.752 g/cm2 Young Adult T-Score -2.1 Age Matched Z-Score -0.7. RT FEMUR, TOTAL BMD 0.879 g/cm2 Young Adult T-Score -1 Age Matched Z-Score 0.0. RT NECK BMD 0.798 g/cm2 Young Adult T-Score -1.7 Age Matched Z-Score -0.4. IMPRESSION: There is normal of the spine. There is low bone density of the left hip. There is low bone density of the right hip. . FOLLOW-UP: Recommendation for the next bone density exam: 2 years. <Electronically signed by Lex Velasquez > 11/26/20 2032
== END ==
LOC: M WHC 14:01
PROVIDERS: ATTEND Nurse Practitioner Women's Health
DX: M85.851 Other specified disorders of bone density and structure, right thigh (principal); M85.852 Other specified disorders of bone density and structure, left thigh; Z13.820 Encounter for screening for osteoporosis; Z78.0 Asymptomatic menopausal state

== ENCOUNTER → 2021-01-02 | Outpatient (CLI) | payer MEDICARE | LOC: M LABSMTC 10:07 | PROVIDERS: ATTEND Pediatrics | DX: Z20.822 Contact with and (suspected) exposure to COVID-19 (principal) | CPT/HCPCS: C9803; U0003 ==

== ENCOUNTER → 2021-01-07 | Outpatient (CLI) | payer MEDICARE ==
--- NOTE | 2021-01-07 15:27 | REP ---
INDICATION: OTH SYMPTOMS AND SIGNS INVOLVING THE CIRC AND RESP SYSTEMS. COMPARISON: 02/24/2010 the latest prior TECHNIQUE: PA and lateral FINDINGS: There is mild cardiomegaly. There are bibasilar opacities. There is minimal bilateral CP angle blunting. There is no significant change in appearance of the osseous structures. IMPRESSION: Bibasilar opacities pneumonia/subsegmental atelectasis with possible small pleural effusions. Follow-up is recommended. <Electronically signed by Sebastián Schmitz > 01/07/21 [id number]
== END ==
LOC: M PLAIMG 14:27
PROVIDERS: ATTEND Nurse Practitioner Family
DX: R09.89 Other specified symptoms and signs involving the circulatory and respiratory systems (principal); J18.9 Pneumonia, unspecified organism; I51.7 Cardiomegaly
CPT/HCPCS: 71046; 87426; G0463

== ENCOUNTER → 2021-02-12 | Outpatient (CLI) | payer MEDICARE, OTHER ==
--- NOTE | 2021-02-12 17:04 | REP ---
INDICATION: PNEUMONIA. COMPARISON: Multiple the latest 01/07/2021 TECHNIQUE: PA and lateral FINDINGS: The cardiomediastinal silhouette is within normal limits on today's exam. The heart is not enlarged. The subtle bibasilar opacities seen previously have resolved. The pleural angles are sharp. Lung chappell are clear. No acute patchy parenchymal opacities or pleural effusions have developed. The osseous structures are stable and intact IMPRESSION: No evidence of acute cardiopulmonary disease. Improvement as described above. <Electronically signed by Sebastián Schmitz > 02/12/21 [id number]
== END ==
LOC: M WUC 13:55
PROVIDERS: ATTEND Family Medicine
DX: J18.9 Pneumonia, unspecified organism (principal)

== ENCOUNTER → 2021-04-01 | Outpatient (CLI) | payer MEDICARE | LOC: M WHC 10:23 | PROVIDERS: ATTEND Nurse Practitioner Family | DX: R21 Rash and other nonspecific skin eruption (principal); Z85.3 Personal history of malignant neoplasm of breast; N64.89 Other specified disorders of breast; Z98.890 Other specified postprocedural states | CPT/HCPCS: 76642; 77065; G0279 ==

== ENCOUNTER 2021-08-13 14:03 | Outpatient (RCR) | payer MEDICARE, OTHER | END 2021-08-16 | LOC: M PT 14:03 | PROVIDERS: ATTEND Orthopaedic Surgery | DX: M17.12 Unilateral primary osteoarthritis, left knee (principal) ==

== ENCOUNTER → 2021-08-29 | Outpatient (CLI) | payer MEDICARE, OTHER | LOC: M WHC 14:55 | PROVIDERS: ATTEND Internal Medicine Hematology & Oncology | DX: Z12.31 Encounter for screening mammogram for malignant neoplasm of breast (principal); Z90.11 Acquired absence of right breast and nipple; Z92.3 Personal history of irradiation; Z85.3 Personal history of malignant neoplasm of breast ==

== ENCOUNTER 2021-09-05 14:15 | Outpatient (RCR) | payer MEDICARE, OTHER | END 2021-09-16 | LOC: M PT 14:15 | PROVIDERS: ATTEND Orthopaedic Surgery | DX: M17.12 Unilateral primary osteoarthritis, left knee (principal) ==

== ENCOUNTER → 2021-10-01 | Outpatient (REF) | payer MEDICARE ==
[2021-10-01 13:40] LABS: HEMOGLOBIN A1c 5.4 %
[2021-10-01 14:02] LABS: ALBUMIN 3.9 GM/DL (3.2-5.2); ALT/SGPT 31 U/L (12-78); BILIRUBIN,TOTAL 0.5 MG/DL (0.2-1.0); BLOOD UREA NITROGEN 12 MG/DL (7-18); CALCIUM LEVEL 8.9 MG/DL (8.8-10.2); CARBON DIOXIDE LEVEL 26 MEQ/L (21-32); CHLORIDE LEVEL 106 MEQ/L (98-107); CHOLESTEROL LEVEL 170 MG/DL (<200); CHOLESTEROL RISK RATIO 4.857 (<5); FREE T4 1.13 NG/DL (0.76-1.46); GLOMERULAR FILTRATION RATE > 60.0 (>45); GLUCOSE, FASTING 86 MG/DL (70-100); HDL CHOLESTEROL 35 MG/DL (>40); LDL CHOLESTEROL 82 MG/DL (<100); NON-HDL-C 135 MG/DL; POTASSIUM SERUM 3.8 MEQ/L (3.5-5.1); SODIUM LEVEL 140 MEQ/L (136-145); THYROID STIMULATING HORMONE 0.406 uIU/ML (0.358-3.740); TOTAL PROTEIN 7.4 GM/DL (6.4-8.2); TRIGLYCERIDES LEVEL 264 MG/DL (<150)
== END ==
LOC: M SFHCADAM 09:55
PROVIDERS: ATTEND Family Medicine
DX: I10 Essential (primary) hypertension (principal); E78.2 Mixed hyperlipidemia; E74.9 Disorder of carbohydrate metabolism, unspecified; Z86.39 Personal history of other endocrine, nutritional and metabolic disease

== ENCOUNTER → 2022-05-26 | Outpatient (CLI) | payer MEDICARE, MEDICAID ==
[~2022-05-26] MED LIST changes: +CBD GUMMY PO; +EMER1PAK6 PO; +IBUP-1022 PO; +VITA200C39 PO; +VITMTA PO
== END ==
LOC: M SOG 14:01
PROVIDERS: ATTEND Orthopaedic Surgery Hand Surgery
DX: M25.531 Pain in right wrist (principal); M19.031 Primary osteoarthritis, right wrist

== ENCOUNTER → 2022-05-26 | Outpatient (CLI) | payer MEDICARE ==
[~2022-05-26] VITALS: Ht 152.4 cm; Wt 76.5 kg
[2022-05-26 08:46] VITALS: BP 138/73
== END ==
LOC: M PAL 08:37
PROVIDERS: ATTEND Nurse Practitioner Adult Health
DX: F43.10 Post-traumatic stress disorder, unspecified (principal); F41.9 Anxiety disorder, unspecified; G47.00 Insomnia, unspecified; G89.29 Other chronic pain; M17.9 Osteoarthritis of knee, unspecified; I10 Essential (primary) hypertension; E78.5 Hyperlipidemia, unspecified; J45.909 Unspecified asthma, uncomplicated; K21.9 Gastro-esophageal reflux disease without esophagitis; E03.9 Hypothyroidism, unspecified; Z85.3 Personal history of malignant neoplasm of breast; Z87.891 Personal history of nicotine dependence; Z51.5 Encounter for palliative care; Z88.8 Allergy status to other drugs, medicaments and biological substances; Z79.899 Other long term (current) drug therapy; M25.531 Pain in right wrist; M19.031 Primary osteoarthritis, right wrist
CPT/HCPCS: 73110; G0463

== ENCOUNTER → 2022-09-01 | Outpatient (CLI) | payer MEDICARE, OTHER | LOC: M WHC 13:29 | PROVIDERS: ATTEND Nurse Practitioner | DX: Z12.31 Encounter for screening mammogram for malignant neoplasm of breast (principal) ==

== ENCOUNTER → 2022-09-28 | Outpatient (CLI) | payer MEDICARE, OTHER ==
[2022-09-28 16:08] LABS: HEMATOCRIT 41.8 % (36.0-47.0); HEMOGLOBIN 13.9 g/dl (12.0-15.5); MEAN CORPUSCULAR HEMOGLOBIN 30.5 pg (27.0-33.0); MEAN CORPUSCULAR HGB CONC 33.3 g/dl (32.0-36.5); MEAN CORPUSCULAR VOLUME 91.9 fl (80.0-96.0); PLATELET COUNT, AUTOMATED 315 10^3/uL (150-450); RED BLOOD COUNT 4.55 10^6/uL (4.00-5.40); WHITE BLOOD COUNT 5.9 10^3/uL (4.0-10.0)
[2022-09-28 16:38] LABS: ALKALINE PHOSPHATASE 76 U/L (46-116); ALT/SGPT 32 U/L (7.0-40); AST/SGOT 21 U/L (<34); BILIRUBIN,TOTAL 0.5 MG/DL (0.3-1.2); BLOOD UREA NITROGEN 13 MG/DL (9-23); CALCIUM LEVEL 8.9 MG/DL (8.3-10.6); CARBON DIOXIDE LEVEL 28 MMOL/L (20-31); CHLORIDE LEVEL 107 MMOL/L (98-107); CHOLESTEROL LEVEL 180 MG/DL (<200); CHOLESTEROL RISK RATIO 4.69 (<5); CREATININE FOR GFR 0.62 MG/DL (0.55-1.30); GLOMERULAR FILTRATION RATE > 60.0 (>45); GLUCOSE, FASTING 100 MG/DL (74-106); HDL CHOLESTEROL 38.3 MG/DL (>40); LDL CHOLESTEROL 102.7 MG/DL (<100); NON-HDL-C 141.7 MG/DL; SODIUM LEVEL 140 MMOL/L (136-145); TOTAL PROTEIN 6.7 G/DL (5.7-8.2); TRIGLYCERIDES LEVEL 195 MG/DL (<150)
[2022-09-28 16:42] LABS: FREE T4 1.05 NG/DL (0.89-1.76); THYROID STIMULATING HORMONE 0.212 uIU/ML (0.55-4.78)
[2022-09-28 18:21] LABS: C REACTIVE PROTEIN QUANTITATIV < 0.40 MG/DL (<1.0)
[2022-09-28 18:23] LABS: RHEUMATOID FACTOR QUANT 17.1 IU/ML (<14)
[2022-09-30 21:11] LABS: ANA (HEP2) Negative (.)
== END ==
LOC: M PLALAB 12:07
PROVIDERS: ATTEND Family Medicine
DX: M25.562 Pain in left knee (principal); M17.12 Unilateral primary osteoarthritis, left knee; F43.23 Adjustment disorder with mixed anxiety and depressed mood; I10 Essential (primary) hypertension; E78.2 Mixed hyperlipidemia; Z86.39 Personal history of other endocrine, nutritional and metabolic disease

== ENCOUNTER → 2022-10-09 | Outpatient (CLI) | payer MEDICAID, MEDICARE | LOC: M PLALAB 15:40 | PROVIDERS: ATTEND Family Medicine | DX: M17.12 Unilateral primary osteoarthritis, left knee (principal); R76.8 Other specified abnormal immunological findings in serum ==

== ENCOUNTER → 2022-11-27 | Outpatient (CLI) | payer MEDICARE, OTHER | LOC: M WHC 09:14 | PROVIDERS: ATTEND Internal Medicine Hematology & Oncology | DX: C50.411 Malignant neoplasm of upper-outer quadrant of right female breast (principal); Z79.811 Long term (current) use of aromatase inhibitors; M85.89 Other specified disorders of bone density and structure, multiple sites ==

== ENCOUNTER → 2023-04-02 | Outpatient (REF) | payer MEDICARE, MEDICAID ==
[~2023-04-02] MED LIST changes: +LORA-1041 PO; -LORA-674 PO
== END ==
LOC: M SFHCADAM 14:21
PROVIDERS: ATTEND Family Medicine
DX: E78.2 Mixed hyperlipidemia (principal); I10 Essential (primary) hypertension

== ENCOUNTER → 2023-05-25 | Outpatient (CLI) | payer MEDICARE, MEDICAID ==
[~2023-05-25] VITALS: Ht 152.4 cm; Wt 74.5 kg
[2023-05-25 13:03] VITALS: BP 144/84; O2SAT 97
== END ==
LOC: M PAL 12:44
PROVIDERS: ATTEND Nurse Practitioner Adult Health
DX: F43.10 Post-traumatic stress disorder, unspecified (principal); F41.9 Anxiety disorder, unspecified; G47.00 Insomnia, unspecified; G89.29 Other chronic pain; M17.9 Osteoarthritis of knee, unspecified; M19.031 Primary osteoarthritis, right wrist; M25.531 Pain in right wrist; Z51.5 Encounter for palliative care; Z79.811 Long term (current) use of aromatase inhibitors; Z79.899 Other long term (current) drug therapy; Z85.3 Personal history of malignant neoplasm of breast; Z87.891 Personal history of nicotine dependence; Z88.6 Allergy status to analgesic agent; Z88.8 Allergy status to other drugs, medicaments and biological substances

== ENCOUNTER → 2023-09-03 | Outpatient (CLI) | payer MEDICARE, OTHER | LOC: M WHC 09:42 | PROVIDERS: ATTEND Internal Medicine Hematology & Oncology | DX: Z12.31 Encounter for screening mammogram for malignant neoplasm of breast (principal) ==

== ENCOUNTER → 2023-09-30 | Outpatient (CLI) | payer MEDICARE, OTHER ==
[2023-09-30 12:01] LABS: ALBUMIN 3.8 G/DL (3.2-5.2); ALKALINE PHOSPHATASE 74 U/L (46-116); ALT/SGPT 23 U/L (7.0-40); AST/SGOT 14 U/L (<34); BILIRUBIN,TOTAL 0.6 MG/DL (0.3-1.2); BLOOD UREA NITROGEN 12 MG/DL (9-23); CALCIUM LEVEL 9.5 MG/DL (8.3-10.6); CARBON DIOXIDE LEVEL 28 MMOL/L (20-31); CHLORIDE LEVEL 106 MMOL/L (98-107); CHOLESTEROL LEVEL 190 MG/DL (<200); CREATININE FOR GFR 0.57 MG/DL (0.55-1.30); GLOMERULAR FILTRATION RATE > 60.0 (>45); GLUCOSE, FASTING 90 MG/DL (74-106); HDL CHOLESTEROL 35.8 MG/DL (>40); LDL CHOLESTEROL 111.6 MG/DL (<100); NON-HDL-C 154.2 MG/DL; POTASSIUM SERUM 3.9 MMOL/L (3.5-5.1); SODIUM LEVEL 143 MMOL/L (136-145); TOTAL PROTEIN 6.9 G/DL (5.7-8.2); TRIGLYCERIDES LEVEL 213 MG/DL (<150)
== END ==
LOC: M WUC 09:04
PROVIDERS: ATTEND Family Medicine
DX: E78.2 Mixed hyperlipidemia (principal); I10 Essential (primary) hypertension

== ENCOUNTER 2024-01-24 10:03 | Day surgery (SDC) | payer MEDICARE, OTHER ==
[~2024-01-24] VITALS: Ht 152.4 cm; Wt 81.2 kg
[~2024-01-24 10:03] MED LIST changes: +BUPR75TA5 PO; +MELO15TA28 PO; +NOXI1TAB PO; +THERTAB52 PO; +VITA200C21 PO; -VITA200C39 PO
[2024-01-24] MEDS ORDERED: LR 1,000 ML IV SCH (10:05)
[2024-01-24] MEDS ORDERED: fentaNYL 100 MCG/2 ML INJECTION As Ordered ONE (10:42)
[2024-01-24] MEDS ORDERED: propofoL 200 MG/20 ML VIAL As Ordered ONE (10:42)
[2024-01-24] MEDS ORDERED: KETOROLAC 60MG 2ML VIAL As Ordered ONE (10:42)
[2024-01-24] MEDS ORDERED: MIDAZOLAM INJ 2MG/2ML VIAL As Ordered ONE (10:42)
[2024-01-24] MEDS ORDERED: LIDOCAINE 2% 100MG/5ML SDV (FOR ANES.) As Ordered ONE (10:42)
[2024-01-24] MEDS ORDERED: ONDANSETRON 4MG 2ML VIAL As Ordered ONE (10:42)
[2024-01-24] MEDS: LIDOCAINE W/EPINEPHRINE 1% 20ML VIAL XX ONE (11:08)
[2024-01-24] MEDS: SODIUM BICARBONATE 8.4% INJ 50MEQ 50ML VIAL XX ONE (11:08)
[2024-01-24] MEDS: diazePAM 5MG TABLET PO ONE (11:08)
[2024-01-24] MEDS ORDERED: BACITRACIN OINTMENT 30GM TUBE As Ordered ONE (11:54)
[2024-01-24 12:35] VITALS: BP 186/90; TEMP 97.8; O2SAT 96
== END 2024-01-24 12:54 | disposition home or self-care (01) ==
LOC: M SDC 10:03
PROVIDERS: ATTEND Orthopaedic Surgery Hand Surgery
DX: G56.01 Carpal tunnel syndrome, right upper limb (principal); I10 Essential (primary) hypertension; E78.5 Hyperlipidemia, unspecified; Z92.21 Personal history of antineoplastic chemotherapy; Z92.3 Personal history of irradiation; K21.9 Gastro-esophageal reflux disease without esophagitis; Z85.3 Personal history of malignant neoplasm of breast; F12.10 Cannabis abuse, uncomplicated; Z79.899 Other long term (current) drug therapy

== ENCOUNTER → 2024-03-08 | Outpatient (CLI) | payer MEDICARE, OTHER ==
[2024-03-08 18:06] LABS: ALBUMIN 3.9 G/DL (3.2-5.2); ALKALINE PHOSPHATASE 78 U/L (35-104); ALT/SGPT 26 U/L (7.0-40); AST/SGOT 16 U/L (<34); BILIRUBIN,TOTAL 0.6 MG/DL (0.3-1.2); BLOOD UREA NITROGEN 11 MG/DL (9-23); CALCIUM LEVEL 9.8 MG/DL (8.3-10.6); CARBON DIOXIDE LEVEL 28 MMOL/L (20-31); CHLORIDE LEVEL 106 MMOL/L (98-107); CHOLESTEROL LEVEL 218 MG/DL (<200); CHOLESTEROL RISK RATIO 5.45 (<5); CREATININE FOR GFR 0.62 MG/DL (0.55-1.30); GLOMERULAR FILTRATION RATE > 60.0 (>45); GLUCOSE, FASTING 98 MG/DL (74-106); LDL CHOLESTEROL 138.6 MG/DL (<100); POTASSIUM SERUM 4.3 MMOL/L (3.5-5.1); SODIUM LEVEL 143 MMOL/L (136-145); TOTAL PROTEIN 7.2 G/DL (5.7-8.2); TRIGLYCERIDES LEVEL 197 MG/DL (<150)
== END ==
LOC: M WUC 11:17
PROVIDERS: ATTEND Family Medicine
DX: E78.2 Mixed hyperlipidemia (principal)

== ENCOUNTER → 2024-09-05 | Outpatient (CLI) | payer MEDICARE, OTHER | LOC: M WHC 08:58 | PROVIDERS: ATTEND Internal Medicine Hematology & Oncology | DX: R92.323 Mammographic fibroglandular density, bilateral breasts (principal); Z12.31 Encounter for screening mammogram for malignant neoplasm of breast; Z85.3 Personal history of malignant neoplasm of breast; Z98.890 Other specified postprocedural states ==

== ENCOUNTER → 2024-11-28 | Outpatient (CLI) | payer MEDICARE, OTHER | LOC: M WHC 12:16 | PROVIDERS: ATTEND Internal Medicine Hematology & Oncology | DX: C50.411 Malignant neoplasm of upper-outer quadrant of right female breast (principal); Z79.811 Long term (current) use of aromatase inhibitors; M85.89 Other specified disorders of bone density and structure, multiple sites ==

== ENCOUNTER → 2025-03-12 | Outpatient (CLI) | payer MEDICARE, MEDICAID ==
[~2025-03-12] MED LIST changes: +BUPR-363 PO; -BUPR75TA5 PO; -IBUP-1022 PO; +IBUP600T42 PO; +ZOLP10TA11 PO; -ZOLP10TA2 PO
[2025-03-12 15:05] LABS: PLATELET COUNT, AUTOMATED 366 10^3/uL (150-450)
[2025-03-12 15:13] LABS: ALT/SGPT 23 U/L (7.0-40); AST/SGOT 22 U/L (<34); CALCIUM LEVEL 9.3 MG/DL (8.3-10.6); CARBON DIOXIDE LEVEL 27 MMOL/L (20-31); CHLORIDE LEVEL 105 MMOL/L (98-107); CHOLESTEROL LEVEL 190 MG/DL (<200); CHOLESTEROL RISK RATIO 4.61 (<5); CREATININE FOR GFR 0.68 MG/DL (0.55-1.30); GLOMERULAR FILTRATION RATE > 90.0 (>45); LDL CHOLESTEROL 122.2 MG/DL (<100); NON-HDL-C 148.8 MG/DL; POTASSIUM SERUM 4.4 MMOL/L (3.5-5.1); SODIUM LEVEL 143 MMOL/L (136-145); TRIGLYCERIDES LEVEL 133 MG/DL (<150)
[2025-03-12 15:16] LABS: FREE T4 1.15 NG/DL (0.89-1.76)
== END ==
LOC: M WUC 11:25
PROVIDERS: ATTEND Family Medicine
DX: K76.0 Fatty (change of) liver, not elsewhere classified (principal); E78.2 Mixed hyperlipidemia; Z86.39 Personal history of other endocrine, nutritional and metabolic disease